=== PATIENT | male | born 1995 | race Caucasian/White ===

== ENCOUNTER 2022-11-28 13:14 | Emergency (ER) | payer OTHER, SELFPAY ==
[2022-11-28] VITALS (16 sets, daily range): BP systolic 109–130; BP diastolic 54–115; PULSE 86–98; RESP 18; TEMP 36.9; O2SAT 95–100; BMI 25.1
--- NOTE | 2022-11-28 13:16 | CRLHL7_ITS ---
For Patients: As a result of the Cures Act, medical imaging exams and procedure reports are released immediately into your electronic medical record. You may view this report before your referring provider. If you have questions, please contact your health care provider. Indication: Fall Technique: Volumetric multidetector CT images of the lumbar spine were obtained without the administration of IV contrast. Comparison: None available. Findings: The lumbar vertebral body heights are grossly maintained. There is mild spasmodic straightening of the normal lumbar lordosis without evidence of significant spondylolisthesis. There is no significant degenerative disc height loss or marginal osteophyte formation. There is no significant spinal canal stenosis or neural foraminal narrowing. There are minimally displaced fractures of the left L1, L2, L3 and L4 levels transverse processes. No other displaced fractures appreciated. The paraspinous soft tissues are grossly within normal limits. Impression: Minimally displaced fractures of the left L1 through L4 transverse processes. Mild spasmodic straightening of the normal lumbar lordosis without evidence of anterior column fracture or unstable injury. Please note that all CT scans at this facility use dose modulation, iterative reconstruction, and/or weight-based dosing when appropriate to reduce radiation dose to as low as reasonably achievable. Dictated by Mazin Kim MD @ 11/28/2022 2:36:30 PM (Electronically Signed)
--- NOTE | 2022-11-28 13:24 | ED.GENADULT ---
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 He landed on a tool belt on his left low back he has a lot of pain. He is able to be assisted out of the vehicle by nursing staff. He denies any headache neck pain loss of consciousness he reports pain in his left lower back, he denies any radicular symptoms no bowel or bladder symptoms he has had no abdominal pain or chest pain as mention. Patient reports he is largely healthy, does not take any medicines has no allergies. He arrives via personal vehicle, trauma team activation was called patient's Frederic coma Scale is 15 Related Data Previous Rx's Medication Instructions Recorded hydromorphone 4 mg tablet 4 mg PO Q6H PRN pain #30 tabs 11/28/22 (Dilaudid) Allergies Allergy/AdvReac Type Severity Reaction Status Date / Time No Known Drug Allergies Allergy Verified 11/28/22 13:32 Review of Systems Status of ROS: Reports: 6 or more systems reviewed and unremarkable except as noted in History and below PFSH PFS Social History Smoking Status: Smoker, status unknown Exam Narrative: Exam Narrative: Objective: Primary survey: Airway breathing circulation disability unremarkable. Secondary survey: In general patient is in moderate distress and discomfort is left low back is alert or x3 HEENT is unremarkable nontender no neck tenderness full range of motion Chest is clear Heart rhythm regular heart murmur Abdomen benign soft nontender no masses Pelvis stable Extremities are no edema neurologic nonfocal Patient has some mild tenderness to left low back no bruits bruising or bleeding, he was able to ambulate as mention Patient's Albert coma Scale is 15 Const: Vital Signs, click to edit/add: Vital Signs - 24 hr 11/28/22 13:26 11/28/22 13:16 11/28/22 13:48 Temperature 98.4 F Pulse Rate 95 Pulse Rate [Pulse Oximeter] 98 Respiratory Rate 18 Blood Pressure Blood Pressure [Ri ght Upper Arm] 130/115 H Pulse Oximetry 100 98 98 Oxygen Delivery Me thod Room Air 11/28/22 13:51 11/28/22 14:00 11/28/22 14:01 Temperature Pulse Rate 93 92 87 Pulse Rate [Pulse Oximeter] Respiratory Rate Blood Pressure 117/72 121/57 L Blood Pressure [Ri ght Upper Arm] Pulse Oximetry 99 95 95 Oxygen Delivery Me thod 11/28/22 14:02 11/28/22 14:11 11/28/22 14:15 Temperature Pulse Rate 86 88 87 Pulse Rate [Pulse Oximeter] Respiratory Rate Blood Pressure 110/69 Blood Pressure [Ri ght Upper Arm] Pulse Oximetry 95 96 95 Oxygen Delivery Me thod 11/28/22 14:21 11/28/22 14:30 11/28/22 14:31 Temperature Pulse Rate 88 87 88 Pulse Rate [Pulse Oximeter] Respiratory Rate Blood Pressure 116/71 109/54 L Blood Pressure [Ri ght Upper Arm] Pulse Oximetry 97 97 97 Oxygen Delivery Me thod 11/28/22 14:41 11/28/22 14:42 11/28/22 14:45 Temperature Pulse Rate 90 91 95 Pulse Rate [Pulse Oximeter] Respiratory Rate Blood Pressure 113/65 Blood Pressure [Ri ght Upper Arm] Pulse Oximetry 97 97 99 Oxygen Delivery Me thod 11/28/22 14:51 Temperature Pulse Rate 87 Pulse Rate [Pulse Oximeter] Respiratory Rate Blood Pressure 119/68 Blood Pressure [Ri ght Upper Arm] Pulse Oximetry 97 Oxygen Delivery Me thod Course Vital Signs Vital signs: Initial Vital Signs Pulse Oximetry 98 11/28/22 13:16 Vital Signs Pulse Oximetry 98 11/28/22 13:16 Temperature 98.4 F 11/28/22 13:26 Pulse Rate 87 11/28/22 14:51 Respiratory Rate 18 11/28/22 13:26 Blood Pressure 119/68 11/28/22 14:51 Pulse Oximetry 97 11/28/22 14:51 Oxygen Delivery Method 11/28/22 13:26 Medical Decision Making MDM Narrative Medical decision making narrative: Patient is a 27 year white male with a fall from a ladder on his back with left low back pain. Patient is able to ambulate without difficulty I would appear it appears as pelvis is stable. He has no neck or his head trauma, no discomfort in his neck or head or mid to upper back. Will give him IV fluid IV pain medication, will check a CT scan of his lumbar spine. Rule out compression fracture rule out transverse process fracture. Disposition pending his findings Heme 4 basic 7 will be drawn. Addendum: The patient has L1 through for lateral left transverse process fractures, no unstable injury or anterior column injury. Patient has gotten better with IV Dilaudid, will give him oral Dilaudid for home 4 mg q.6 hours as needed cautioned about sedative effect, no drinking or driving, off work until follow-up with primary care in the next 2-4 days. May need some physical therapy as well. If anything changes in his clinical status he should return to the ED promptly such as abdominal pain headache neck pain or other concern. Lab Data Labs: Lab Results 11/28/22 11/28/22 Range/Units 13:20 13:20 WBC 6.95 (4.50-11.00) K/uL RBC 4.92 (4.30-5.90) m/uL Hgb 15.4 (13.5-17.5) gm/dL Hct 43.7 (37.0-53.0) % MCV 89 (80-100) fL MCH 31 (26-34) pg MCHC 35 (32-36) gm/dL RDW Coeff of Mimi 11.5 (11.5-15.5) % Plt Count 317 (140-440) K/uL Neut % (Auto) 58.7 (42.0-72.0) % Lymph % (Auto) 30.5 (20-44) % [place] % (Auto) 8.5 (0.0-11.0) % Eos % (Auto) 1.9 (0.0-7.0) % Baso % (Auto) 0.3 (0.0-3.0) % Neut # (Auto) 4.08 (1.7-7.0) K/uL Lymph # (Auto) 2.12 (0.90-2.90) K/uL [place] # (Auto) 0.60 (0.00-0.90) K/UL Eos # (Auto) 0.13 (0.00-0.50) K/uL Baso # (Auto) 0.02 (0.00-0.30) K/uL Sodium 136 (135-149) mmol/L Potassium 3.6 (3.6-5.1) mmol/L Chloride 101 (96-114) mmol/L Carbon Dioxide 27 (20-32) mmol/L BUN 24 (5-24) mg/dL Creatinine 0.9 (0.5-1.5) mg/dL Estimated Creat Clear 117.31 Estimated GFR 122 ml/min Glucose 132 H (60-115) mg/dL Calcium 9.0 (8.4-10.6) mg/dL Discharge Plan Discharge Clinical Impression: Injury resulting from fall from height, Acute left-sided low back pain, Fracture of transverse process of lumbar vertebra Patient Disposition: Home w/ Parent or Adult Condition: Improved Additional Instructions: Move about occasionally, avoid excess sedentary status, a [id number] back brace might be helpful for symptom relief, pain medicine as needed, no drinking or driving with this medication. Follow up with primary care in the next 2-3 days for reassessment, consider physical therapy for rehabilitation. Return to the ED if any changes in abdominal pain, chest pain, or new symptoms arise that are concerning. Activity Level: Light activity Activity Detail: Off work until follow-up with primary care Discharge Diet: Regular Prescriptions: New hydromorphone [Dilaudid] 4 mg tablet 4 mg PO Q6H PRN (Reason: pain) Qty: 30 0RF Follow Up/Referrals: Provider,Not a Local [Primary Care Provider] - Stand Alone Forms: [employer] Info Instructions
[2022-11-28] MEDS: 0.9 % SODIUM CHLORIDE 500 ML 500 ML IV (13:25)
[2022-11-28] MEDS: MORPHINE 4 MG/ML INJ IVP (13:25)
[2022-11-28 13:38] LABS: Basophils Absolute Auto 0.02 K/uL (0.00-0.30); Basophils Percent Auto 0.3 % (0.0-3.0); Eosinophils Absolute Auto 0.13 K/uL (0.00-0.50); Eosinophils Percent Auto 1.9 % (0.0-7.0); Hematocrit 43.7 % (37.0-53.0); Hemoglobin* 15.4 gm/dL (13.5-17.5); Immature Granulocytes Abs Auto 0.01 K/uL (0.00-0.30); Immature Granulocytes Pct Auto 0.1 %; Lymphocytes Absolute Auto 2.12 K/uL (0.90-2.90); Lymphocytes Percent Auto 30.5 % (20-44); Mean Corpuscular HGB Conc 35 gm/dL (32-36); Mean Corpuscular Hemoglobin 31 pg (26-34); Mean Corpuscular Volume 89 fL (80-100); Monocytes Percent Auto 8.5 % (0.0-11.0); Neutrophils Absolute Auto 4.08 K/uL (1.7-7.0); Neutrophils Percent Auto 58.7 % (42.0-72.0); Platelet Count* 317 K/uL (140-440); RDW Coefficient of Variation % 11.5 % (11.5-15.5); Red Blood Count 4.92 m/uL (4.30-5.90); White Blood Count* 6.95 K/uL (4.50-11.00)
[2022-11-28 13:43] LABS: Slide Review Reflex No
[2022-11-28] MEDS: HYDROmorphone 0.5 mg/0.5 ml inj 1 MG IVP ×2 (13:46→14:48)
[2022-11-28 13:53] LABS: Chloride* 101 mmol/L (96-114); Potassium* 3.6 mmol/L (3.6-5.1); Sodium* 136 mmol/L (135-149)
[2022-11-28 13:56] LABS: Carbon Dioxide* 27 mmol/L (20-32); Creatinine* 0.9 mg/dL (0.5-1.5); Est. Creatinine Clearance* 117.31; Estimated Glomerular Filt Rate 122 ml/min
[2022-11-28 13:57] LABS: Blood Urea Nitrogen* 24 mg/dL (5-24); Glucose* 132 mg/dL (60-115)
== END 2022-11-28 15:38 | disposition home or self-care (01) ==
PROVIDERS: Emergency Provider Family Medicine
DX: S32.019A Unspecified fracture of first lumbar vertebra, initial encounter for closed fracture (principal); S32.029A Unspecified fracture of second lumbar vertebra, initial encounter for closed fracture; S32.039A Unspecified fracture of third lumbar vertebra, initial encounter for closed fracture; S32.049A Unspecified fracture of fourth lumbar vertebra, initial encounter for closed fracture; W11.XXXA Fall on and from ladder, initial encounter; Y92.69 Other specified industrial and construction area as the place of occurrence of the external cause; Y99.0 Civilian activity done for income or pay
CPT/HCPCS: 36415; 72131; 80048; 85025; 94761; 96374; 96375; 96376; 99284; 99285; 99291; J1170; J2270; J7120